=== PATIENT | male | born 1955 | race Caucasian/White ===

== ENCOUNTER → 2016-11-24 | Outpatient (CLI) | payer OTHER ==
[~2016-11-24] MED LIST: ACETAMINOPHEN PO; LEVAQUIN PO; SYNTHROID PO; TEMOVATE EMOLLI30 GM TOP; ZESTORETIC 10/11 TAB PO
--- NOTE | ~2016-11-24 | CT57 ---
[facility] A Service of [facility] RADIOLOGY TEXT RESULTS PATIENT: ANETA CHEEMA LOCATION: [facility] : 55 UNIT #: [id number] AGE: [address]: Maria A Thomas SEX: M ORDER DR: [id number] [facility] [address] [place], [place] [address] [id number] O MR#: [id number] Acc #: [id number] NAME: ANETA CHEEMA. : 1955 SEX: M STUDY DATE/TIME: 11/24/2016 8:18 UNIT: [facility] ROOM: STUDY DESCRIPTION: CT Chest Wo Cont Attending Physician: Maria A Thomas A.P.R.N. Referring Physician: Maria A Thomas A.P.R.N. Ordering Physician: Maria A Thomas A.P.R.N. Primary Care Physician: Anibal Timmons M.D. MEDICAL IMAGING REPORT This report is preliminary unless electronic signature is present EXAM CT chest. INDICATIONS Dyspnea. Abnormal pulmonary function test. Shortness of air and congestion for 1 year. Asthma. Hypertension. TECHNIQUE CT of the thorax without contrast. High resolution images were obtained in the supine position during inspiration and expiration. Prone images were acquired during inspiration. Exams performed as a high-resolution chest CT protocol. This CT exam was performed with one or more of the following radiation dose reduction techniques: automatic exposure control, adjustment of mA and/or kV according to patient size, and iterative reconstruction. COMPARISON Chest radiograph 02/24/2016. FINDINGS There is no evidence of significant architectural distortion/honeycombing. No bronchiectasis. No significant air trapping. There is no evidence for significant interstitial lung disease. Specifically there is no evidence of a usual interstitial pneumonia. There is some patchy airspace opacities in the lateral aspect of the left lower lobe. This is most consistent with an acute inflammatory/infectious process. Mild bronchial wall thickening is seen throughout both lungs which could be seen in setting of acute or chronic bronchitis. No dense consolidation. No pathologically enlarged mediastinal or hilar lymph nodes. Thoracic [facility] A Service of [facility] RADIOLOGY TEXT RESULTS PATIENT: ANETA CHEEMA LOCATION: [facility] : 55 UNIT #: [id number] AGE: [address]: Maria A Thomas SEX: M ORDER DR: aorta is normal in caliber. No pericardial or pleural effusion. There is moderate coronary artery calcifications. Limited images of the upper abdomen were obtained. There is some generalized splenomegaly. Gallbladder surgically absent. No acute osseous abnormalities. IMPRESSION 1. Patchy airspace opacities in the left lower lobe consistent with an acute pneumonia. 2. Mild bronchial wall thickening can be seen in the setting of acute or chronic bronchitis. 3. No evidence of a significant chronic interstitial lung disease. Specifically, no evidence of a usual interstitial pneumonia (UIP). Dictated by... Man Sandra M.D. THIS IS AN ELECTRONICALLY VERIFIED REPORT Man Sandra M.D. at 11/25/2016 9:54 AM Jim TD: 11/24/2016 10:13 JOB #: [id number] MEDICAL IMAGING REPORT Page 1 of 1 COPY
== END | disposition home or self-care (01) ==
LOC: CCAT 07:49
DX: R06.00 Dyspnea, unspecified (principal); R91.8 Other nonspecific abnormal finding of lung field
CPT/HCPCS: 71250